=== PATIENT | female | born 1945 | race Caucasian/White ===

== ENCOUNTER 2024-10-07 08:53 | Emergency (ER) | payer MEDICARE, SELFPAY ==
[2024-10-07 09:43] VITALS: BP 144/67; PULSE 62; RESP 18; TEMP 36.9; O2SAT 98; BMI 27.3
--- NOTE | 2024-10-07 10:30 | XRR_ITS ---
PROCEDURE INFORMATION: Exam: XR Left Humerus Exam date and time: 10/07/2024 10:35 AM Age: 79 years old Clinical indication: Pain; Upper arm; Left TECHNIQUE: Imaging protocol: Radiologic exam of the left humerus. Views: 2 or more views. COMPARISON: No relevant prior studies available. FINDINGS: Bones/joints: There is a comminuted and displaced fracture involving the proximal humerus. Fracture primarily appears to involve the surgical neck. Bones are diffusely demineralized. Soft tissues: Normal. XR/[place] [id number] IMPRESSION: 1. Proximal left humerus fracture.
--- NOTE | 2024-10-07 13:03 | ED_ITS ---
HPI - General Adult General: Chief complaint: Extremity Injury, Upper Stated complaint: LT arm inj Time Seen by Provider: 10/07/24 08:56 Source: patient and family Mode of arrival: wheelchair Limitations: no limitations History of Present Illness: Patient is a 79-year-old female presents to ED today along with family for a request of refills on her pain medication. Patient states she broke her proxi mal humerus last Thursday and was seen at [facility]. She was given a prescription for oxycodone and ibuprofen. She states she has been taking 1 tablet of the 5mg/325mg every 6 hours and alternating it with 800 mg of ibuprofen and this seems to be controlling her pain. She was given 15 tabs last Thursday from [facility] and she is now out of this medication. She does have follow-up with Dr. Murphy scheduled for 10/14 (7 days from now) and needing enough pain medication to last her until this appointment. Pain Consistency: constant Relieving factors: other (pain medication) Exacerbating factors: movement Associated symptoms: Reports no associated symptoms; Deny chest pain or dyspnea Related Data Previous Rx's Medication Instructions Recorded oxycodone-acetaminophen 5 mg-325 1 tab PO Q6H PRN pain #28 tabs 10/07/24 mg tablet (Percocet) Allergies Allergy/AdvReac Type Severity Reaction Status Date / Time erythromycin base Allergy Unknown Verified 10/07/24 09:52 iodine Allergy Unknown Verified 10/07/24 09:52 Review of Systems Const: Denies: fever(s) Card: Denies: chest pain Resp: Denies: dyspnea Musc: Reports: joint pain (L shoulder) and limited range of motion (L shoulder); Denies: joint swelling, joint redness or joint warmth Neuro: Denies: numbness in extremities, weakness in extremities or sensory changes Physical Exam Const: COMMON NORMALS: no acute distress, average body habitus, patient oriented x3, no limitations, healthy appearing, alert and well nourished GENERAL APPEARANCE: cooperative ORIENTATION/CONSCIOUSNESS: Yes awake, Yes oriented to person, Yes oriented to place and Yes oriented to time Extremity: COMMON NORMALS: capillary refill normal GENERAL: Yes normal exam except as noted LEFT UPPER EXTREMITY: Yes shoulder joint (in sling due to known proximal humeral fx) Left shoulder joint: Yes ROM (not tested due to known fx) and Yes neurovascular exam (normal) Neuro: COMMON NORMALS: patient oriented x3, moves all extremities, no focal motor deficits and no sensory deficits noted SENSORIUM/ORIENTATION: Yes alert, Yes oriented to person, Yes oriented to place and Yes oriented to time Course Vital Signs: Vital signs: Vital Signs Temperature 98.4 F 10/07/24 09:43 Pulse Rate 62 10/07/24 09:43 Respiratory Rate 18 10/07/24 09:43 Blood Pressure 144/67 10/07/24 09:43 Pulse Oximetry 98 10/07/24 09:43 Oxygen Delivery Me thod Room Air 10/07/24 09:43 MDM - General Adult Medical Decision Making Confirm her appointment with Dr. Murphy on 10/14. Patient will be given pain medication to last her until this appointment. Dr. Biggs wrote for pain medication. Medical Records I reviewed the patient's medical records. Lab Data Radiology Impressions Humerus X-Ray 10/07/24 10:30 IMPRESSION: 1. Proximal left humerus fracture. All radiology interpretation(s) finalized by discharge Discharge Plan Discharge Patient Disposition: Home Clinical Impression: Fracture of proximal end of humerus Qualifiers: Encounter type: initial encounter Fracture type: closed Fracture morphology: other fracture Fracture alignment: displaced Laterality: left Qualified Code(s): S42.292A - Other displaced fracture of upper end of left humerus, initial encounter for closed fracture Condition: Stable Prescriptions: New oxycodone-acetaminophen [Percocet] 5-325 mg tablet 1 tab PO Q6H PRN (Reason: pain) Qty: 28 0RF Discharge Orders: Discharge ED (Routine); Ordered 10/07/24 Ordered By: Silvana Stevenson Patient Instructions: Proximal Humerus Fracture (ED), Opioid Safety, Pain Management Activity Restrictions/Additional Instructions: Please follow-up with Dr. Murphy on 10/14 as scheduled. Prescription for your pain medication has been sent to [facility] as requested. Coding Level of Care Code ED Emergency Medicine Medical Director for Oscar Cheney
[2024-10-07 13:27] VITALS: BP 138/71; PULSE 63; O2SAT 99
== END 2024-10-07 13:28 | disposition home or self-care (01) ==
PROVIDERS: Emergency Provider Physician Assistant
DX: S42.292A Other displaced fracture of upper end of left humerus, initial encounter for closed fracture (principal); X58.XXXA Exposure to other specified factors, initial encounter; Z76.0 Encounter for issue of repeat prescription
CPT/HCPCS: 73060; 99283

== ENCOUNTER → 2024-10-14 10:22 | Outpatient (BNVA) | payer MEDICARE, SELFPAY | PROVIDERS: Visit Provider Student in an Organized Health Care Education/Training Program | DX: S42.292A Other displaced fracture of upper end of left humerus, initial encounter for closed fracture (principal); W10.1XXA Fall (on)(from) sidewalk curb, initial encounter | CPT/HCPCS: 73030; 99204 ==

== ENCOUNTER 2024-10-17 10:02 | Day surgery (SDC) | payer MEDICARE, SELFPAY ==
[2024-10-17] VITALS (19 sets, daily range): BP systolic 124–166; BP diastolic 66–90; PULSE 68–90; RESP 16–97; TEMP 36.5–37.5; O2SAT 93–99; BMI 27.3
--- NOTE | 2024-10-17 | XR_ITS ---
WS: [id number] Left arm and humerus, 2 views, C-arm fluoroscopy, 10/17/2024 Clinical Data: EDE PICS Comparison: Left shoulder, 10/14/2024 Findings: Dr. Murphy inserted the proximal left humeral nail and fixed the proximal portion with transverse orth opedic screws. XR/[place] [id number] Impression: Internal fixation of proximal left humeral fracture.
--- NOTE | 2024-10-17 10:27 | W.PM.OPSUD ---
Surgery/Procedure H&P Update DATE OF PROCEDURE: October 17, 2024 DATE H&P PERFORMED: 10/14/24 H&P UPDATE INFORMATION: I have reviewed H&P completed within last 30 days, I have examined patient prior to procedure and No changes to prior documentation PREOP DIAGNOSIS: Left proximal humerus fracture PRIMARY INDICATION FOR PROCEDURE: Left proximal humerus fracture displaced PLANNED PROCEDURE: Operation Date: 10/17/24 11:50 Proposed Procedures p ORIF Proximal Humerus(Left) - Miles Murphy DO
[2024-10-17] MEDS: acetaminophen 1,000 MG/100 ML PIGGYBACK 400 MG IV (10:30)
--- NOTE | 2024-10-17 10:59 | ANES.PREANE2 ---
Pre-Anesthetic Assessment Height/Weight: Height 1.55 m Weight 65.771 kg Temp Pulse Resp BP Pulse Ox O2 Del Method 99.5 F 68 17 124/66 96 Room Air 10/17/24 10:22 10/17/24 10:22 10/17/24 10:22 10/17/24 10:22 10/17/24 10:22 10/17/24 10:23 Preop Diagnosis: Left proximal humerus fracture Operation Date: 10/17/24 11:50 Proposed Procedures p ORIF Proximal Humerus(Left) - Miles Meigs, Familial anesthetic complications: None Was Beta Kirstin taken within 24 hours: N/A Was Clonidine taken within 24 hours: N/A Last intake: Intake Last Liquid Date 10/16/24 Last Liquid Time 19:00 Last Solid Date 10/16/24 Last Solid Time 19:00 Social No alcohol and No tobacco Exam alert, oriented x 3, clear to auscultation bilaterally and regular rate & rhythm Airway Mallampati: Class I Dentition: chipped (several broken) CV/HEM Able to achieve > 4 METS, good functional status - 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 Anesthetic Plan ASA status: 1 Anesthesia: General Risk of > 500 ml blood loss (7ml/kg in children): No Medications/Allergies Home Medications Medication Instructions Recorded Confirmed Last Taken Type oxycodone-acetaminophen 5 mg-325 1 tab PO Q6H PRN pain 7 days #28 10/14/24 10/17/24 10/17/24 Rx mg tablet (Percocet) tabs Allergies Allergy/AdvReac Type Severity Reaction Status Date / Time erythromycin base Allergy Unknown Verified 10/14/24 10:28 iodine Allergy Unknown Verified 10/14/24 10:28 [facility] Anesthesia Social History Smoking and tobacco/nicotine status: never used tobacco/nicotine Data Anesthesia Cardiac Studies: No Data to Display
[2024-10-17] MEDS: sodium chloride 0.9% 1,000 ML 30 ML IV (11:11)
[2024-10-17] MEDS: ceFAZolin 2,000 MG in sodium chloride 0.9% (plus) 50 ML 100 MG IV (12:18)
--- NOTE | 2024-10-17 14:15 | P.OP_ITS ---
Operative Report Date of procedure: October 17, 2024 Pre-op diagnosis: Comminuted displaced left proximal humerus fracture Post-op diagnosis: Same Procedure done: Left proximal humerus open reduction internal fixation with proximal humeral nail Implants: Anil T2 proximal humeral nail 8 mm x 150 mm Locking screw fully threaded( 5 mm x 45 mm, , 5 mm x 45 mm, 5 mm x 37.5 mm) (4 mm x 26 mm, 4 mm x 28 mm wasted) Surgeon: Miles Murphy DO Anesthesia: General Estimated blood loss: 40mL none IV fluids: 1200mL Complications: none Findings: see op note Disposition: same day Brief History: Patient is a pleasant 79-year-old female whose had significant fracture of the left proximal humerus predominantly at the surgical neck with significant translation impaction and displacement. We talked about details with patient as well as daughter at this point in time we talked about nonoperative versus operative invention, given her interval displacement from the ER images we talked about treatment options and through shared decision making they elect proceed with left proximal humerus open reduction internal fixation with plan for proximal humeral nail. We talked about the ins and outs procedure risk benefits complication alternatives surgery through shared decision-making elects proceed with surgical intervention. All questions answered at this time. Procedure: Patient was seen eval in the preoperative holding area. Consent was reviewed and signed with patient. Correct extremity was then subsequently marked. She was seen evaluated by anesthesia was cleared for surgery she was taken back to the operative suite. Transported on the OR table In supine position all bony problems well-padded patient was awake. Appropriately secured to the bed. She subsequently underwent anesthesia per the anesthesia department once properly anesthetized we then position patient into a sloppy beachchair position and then subsequently secured to make sure appropriate head and neck positioning was confirmed as well as brought in the C arm from the opposite side to confirm satisfactory ability to obtain the images. At this point in time once I satisfied with this I then subsequently had the left upper extremity was then prepped and draped standard orthopedic fashion. Final timeout performed. Patient received appropriate preoperative robotics. This point time I brought in the fluoroscopic imaging to confirm viability to obtaining of reduction. At this point in time I was able to obtain traction with this engage as well as was able to manually hold the fracture in better alignment from a lateral plane affecting more the anterior to posterior translation. At this point time once I was satisfied with my ability to achieve a reduction I started with a small anterior lateral incision right off the anterolateral edge of the acromion and standard proximal humeral nail fashion. Sharp scalpel incision was made through skin subcutaneous tissue maintain exact hemostasis with electrocautery. I then subsequently utilized Metzenbaum scissors to split the anterior third of the deltoid through the raphae and then subsequently blunt dissection freed of any adhesions in the subacromial space and then came down directly over the rotator cuff which was intact. At this point in time the head was in slight varus positioning I utilized FiberWire to suture this within the rotator cuff to obtain control for my reduction and was going to have my library technical assistant hold this during the procedure to maintain my reducti on and positioning. At this point in time once I was satisfied with multiple adjustments with my manual traction rotation as well as holding of the rotator cuff suture to take this out of the varus positioning once I had satisfactory positioning with for scopic imaging I proceeded with a humeral nail. I then subsequently percutaneously made a small poke to the rotator cuff tendon and then subsequently came down over the starting position in the sulcus of the articular border laterally as well as just medial to the greater tuberosity in standard Anil proximal humeral nail protocol fashion. I then did a lateral positioning to confirmed to be in the center center position from an anterior to posterior positioning and then subsequently utilized a mallet to impact this down while holding this reduction I advanced that into the distal fracture fragment I then subsequently utilized the opening reamer and then removed the nail I utilized a long ball-tipped guidewire as well as the sleeve to satisfactorily placed a none ball-tipped wire to slide the humeral nail over this I held the reduction this entire time by my library technical assistant and then subsequently advanced the 8 mm x 150 mm [place] T2 proximal humeral nail. This was impacted to satisfactory position and confirmed to be satisfactory position and multiple orthogonal imaging. Once I was in satisfactory position I then subsequently proceeded with a proximal screw I subsequently utilized the targeting guide placed the triple sleeve and then subsequently drilled measured and placed appropriate 5 mm locking screw proximally. I then while this was held in reduction I then subsequently fixed by fracture distally subsequently drilled placed a placed a 28 mm screw this was determined to being slightly longer than what the reading w as and subsequently transitioned this to a 26 mm 4 mm locking screw. At this point in time I then prior to furthering my fixation I subsequently took multiple orthogonal images had satisfactory placement of the nail as well as fixation proximally distally and was satisfied at this point time and then subsequently proceeded with further locking fixation and subsequently drilled and placed an additional 3 locking screws in the proximal humeral head. Once these were all placed I then took final fluoroscopic imaging I then removed the targeting guide and subsequently took my final fluoroscopic imaging took the shoulder through range of motion this moved as an entire unit and had satisfactory reduction and maintaining of alignment and stable fixation with multiple ranges of motion as well as multiple orthogonal images. All the screws were taken through approach withdrawal technique and none were intra-articular. At this point in time I then thoroughly irrigated the wound bed. I then wilson bsequently removed by controlling rotator cuff sutures and then tied utilizing FiberWire to repair the small split from the nail that was made in the rotator cuff repaired this with FiberWire suture in standard time fashion. Once I satisfied this thorough irrigation performed once again maintained exact hemostasis with electrocautery and then subsequently proceeded closing this in layered fashion with 0 Vicryl for the deltoid fascia as well as 2-0 Vicryl and then ghanshyam for the skin. This was then dressed with a standard Silverlon dressing and a UltraSling was applied. Patient tolerated procedure well without issues or complication taken back to PACU in stable condition. Disposition: Patient taken back in stable condition recovering well will follow-up in the orthopedic office in 2 weeks to receive appropriate discharge Fransico as well as pain medication postoperatively. Patient and daughter understand agree with current plan. Questions answered.
--- NOTE | 2024-10-17 14:20 | P.BOP_ITS ---
Date of Procedure: [October 17, 2024] Surgeon: [Dr. Murphy, DO] Communications Department Chair(s): [N/A] Procedure(s) performed: [Left Proximal humeral open reduction internal fixation with humeral nail] Findings of the procedure(s): [Displaced left proximal humerus fracture. Procedure went well and as planned.] Estimated blood loss: [40 mL] Specimen(s) removed: [N/A] Post-operative diagnosis: [Displaced left proximal humerus fracture]
--- NOTE | 2024-10-17 14:24 | PM.PACU ---
PACU note Narrative: Patient is a 79-year-old female who just underwent a left proximal humerus ORIF. Patient transferred to PACU in stable condition. Pain is well controlled. shoulder Dressing on , dry and in place. Patient's operative arm is in a shoulder immobilizer. Patient is awake and alert and able to respond to my questions accordingly. Patient's fingers are warm with good perfusion. Normal cap refill under 2 seconds. Unable to assess further range of motion in arm due to sling. sensation to hand is intact. Exam: somnolent, arousable Disposition: discharged
[2024-10-17] MEDS: fentaNYL 50 mcg/mL INJ 2mL IVP ×2 (14:32→14:40)
[2024-10-17] MEDS: ondansetron 2 mg/ML SDV 2 mL 4 MG IVP (14:43)
[2024-10-17] MEDS: HYDROmorphone 1 mg/mL INJ 1 mL 0.5 MG IVP (14:57)
[2024-10-17] MEDS: HYDROcodone-acetaminophen 7.5-325 mg Tablet 1 TAB PO (16:02)
[2024-10-17] MEDS: ketorolac 30 mg/mL INJ 15 MG IVP (16:30)
--- NOTE | 2024-10-17 17:25 | ANE.PACU2 ---
Inpatient post-anesthesia follow up: Airway intact: Yes Vital signs: Temperature 97.7 F Pulse Rate 83 Respiratory Rate 18 Blood Pressure 146/81 Pulse Oximetry 94 Oxygen Delivery Me thod Room Air Oxygen Flow Rate 2 Fraction of Inspir ed Oxygen Hydration adequate: Yes Nausea and vomiting: No Pain level: 1 Mental status: Baseline
== END 2024-10-17 17:25 | disposition home or self-care (01) ==
PROVIDERS: Visit Provider Student in an Organized Health Care Education/Training Program
PROC: (CPT 24516; principal; 2024-10-17 11:50)
DX: S42.202A Unspecified fracture of upper end of left humerus, initial encounter for closed fracture (principal); W01.0XXA Fall on same level from slipping, tripping and stumbling without subsequent striking against object, initial encounter
CPT/HCPCS: 23615; 73060; 76000; C1713; J0131; J0690; J1100; J1171; J1885; J2405; J2704; J3010; J7030

== ENCOUNTER → 2024-11-01 11:03 | Outpatient (BNVA) | payer MEDICARE, SELFPAY | PROVIDERS: Visit Provider Student in an Organized Health Care Education/Training Program | DX: S42.292D Other displaced fracture of upper end of left humerus, subsequent encounter for fracture with routine healing; X58.XXXD Exposure to other specified factors, subsequent encounter; Z46.89 Encounter for fitting and adjustment of other specified devices; S42.402D Unspecified fracture of lower end of left humerus, subsequent encounter for fracture with routine healing | CPT/HCPCS: 73060 ==

== ENCOUNTER 2024-11-01 14:47 | Outpatient (CLI) | payer MEDICARE, SELFPAY | END 2024-11-01 14:48 | disposition home or self-care (01) | LOC: SPT 14:50 | PROVIDERS: Visit Provider Student in an Organized Health Care Education/Training Program | DX: Z46.89 Encounter for fitting and adjustment of other specified devices (principal); S42.402D Unspecified fracture of lower end of left humerus, subsequent encounter for fracture with routine healing; X58.XXXD Exposure to other specified factors, subsequent encounter | CPT/HCPCS: 99024; A4565 ==

== ENCOUNTER 2024-11-05 13:30 | Emergency (ER) | payer MEDICARE, SELFPAY ==
--- NOTE | 2024-11-05 13:36 | XRR_ITS ---
PROCEDURE INFORMATION: Exam: XR Left Humerus Exam date and time: 11/05/2024 2:43 PM Age: 79 years old Clinical indication: Pain; Upper arm; Prior surgery; Surgery date: 3-7 days post-operative; Surgery type: Left humerus; Additional info: Lt upper arm pain; Recent lt humeral orif TECHNIQUE: Imaging protocol: Radiologic exam of the left humerus. Views: 2 or more views. COMPARISON: [place] [id number] 10/07/2024 10:35 AM FINDINGS: Bones/joints: Intact ORIF hardware in the proximal left humerus traversing a fracture in this region. Soft tissues: Normal. XR/[place] [id number] IMPRESSION: No acute findings.
[2024-11-05 13:43] VITALS: BP 188/91; PULSE 63; RESP 17; TEMP 36.6; O2SAT 95; BMI 26.5
[2024-11-05 14:36] VITALS: BP 179/90; PULSE 71; RESP 18; O2SAT 97
--- NOTE | 2024-11-05 14:49 | XRR_ITS ---
PROCEDURE INFORMATION: Exam: XR Left Elbow Exam date and time: 11/05/2024 3:07 PM Age: 79 years old Clinical indication: Pain; Elbow; Prior surgery; Surgery date: 3-7 days post-operative; Surgery type: Left humeral orif TECHNIQUE: Imaging protocol: Radiologic exam of the left elbow. Views: 3 or more views. COMPARISON: CR (UP EXM, ) 11/05/2024 2:43 PM FINDINGS: Bones/joints: Normal. Soft tissues: Normal. XR/XR elbow LT min 3V* [id number] IMPRESSION: No acute findings.
--- NOTE | 2024-11-05 14:50 | ED_ITS ---
HPI - Extremity Problem General: Chief complaint: Extremity Injury, Upper Stated complaint: lft shoulder injury Time Seen by Provider: 11/05/24 14:27 History of Present Illness: 79-year-old female presents emergency ro om complaining of left shoulder pain. October 17 she had fallen and had Left proximal humerus fracture. She had open reduction internal fixation. She is complaining of increasing pain radiating down to her elbow now. She still has use of her left hand. Neuro vascularly intact. No new trauma since the surgery Associated symptoms: Deny chest pain, fever(s) or rash Related Data Home Medications Medication Instructions Recorded Confirmed acetaminophen 325 mg tablet 325 mg PO QID PRN Pain 11/01/24 11/05/24 (Tylenol) aspirin 81 mg tablet,delayed 81 mg PO BID 11/05/24 11/05/24 release ondansetron 4 mg disintegrating 4 mg PO Q8H PRN Nausea And Vomiting 11/05/24 11/05/24 tablet Previous Rx's Medication Instructions Recorded CUFF AND COLLAR BRACE #1 ea 11/01/24 oxycodone-acetaminophen 5 mg-325 1 tab PO Q6H PRN pain #20 tabs 11/05/24 mg tablet Allergies Allergy/AdvReac Type Severity Reaction Status Date / Time erythromycin base Allergy Unknown Verified 11/01/24 11:18 iodine Allergy Unknown Verified 11/01/24 11:18 Review of Systems Const: Denies: fever(s) or chills Card: Denies: chest pain Resp: Denies: dyspnea GI: Denies: abdominal pain : Denies: dysuria, urinary frequency or urinary urgency Musc: Denies: neck pain or back pain Skin/Breast: Denies: rash PFSH ED PFSH: Social History Smoking and tobacco/nicotine status: never used tobacco/nicotine Physical Exam Const: COMMON NORMALS: no acute distress GENERAL APPEARANCE: cooperative and comfortable ORIENTATION/CONSCIOUSNESS: Yes awake, Yes oriented to person, Yes oriented to place and Yes oriented to time HENMT: COMMON NORMALS: normocephalic, atraumatic and hearing grossly normal bilaterally HEAD & SCALP: normocephalic and atraumatic Resp: COMMON NORMALS: normal respiratory effort, No retractions, No use of accessory muscles and clear to auscultation bilaterally AUSCULTATION: clear to auscultation bilaterally Cardio: COMMON NORMALS: regular rate, regular rhythm and No murmurs present (Cardio) RATE: regular rate RHYTHM: regular rhythm Extremity: OTHER: Examination incision wound is well-healed no dehiscence no redness no erythema no sign of trauma there is no evidence of dislocation. Neuro: SENSORIUM/ORIENTATION: Yes oriented to person, Yes oriented to place and Yes oriented to time Skin: COMMON NORMALS: no rashes or lesions noted GENERAL SKIN EXAM: no rashes or lesions noted Course Vital Signs: Vital signs: Vital Signs Temperature 97.8 F 11/05/24 13:43 Pulse Rate 66 11/05/24 16:19 Respiratory Rate 18 11/05/24 14:36 Blood Pressure 178/76 11/05/24 16:19 Pulse Oximetry 96 11/05/24 16:19 Oxygen Delivery Me thod Room Air 11/05/24 14:36 MDM - Extremity (Nontraumatic) Medical Decision Making Midshaft of the humerus at the termination area of the intramedullary reed there is a cortical defect appears to be a fracture. This corresponds to the area of pain that the patient is having reviewed with Dr. Murphy he concurred. Discharge patient home and f/u [address] Murphy. Medical Records I reviewed the patient's medical records. Lab Data Radiology Impressions Humerus X-Ray 11/05/24 13:36 IMPRESSION: No acute findings. Elbow X-Ray 11/05/24 14:49 IMPRESSION: No acute findings. All radiology interpretation(s) finalized by discharge Discharge Plan Discharge Patient Disposition: Home Clinical Impression: Fracture of proximal end of left humerus Fracture, humerus, shaft Qualifiers: Encounter type: initial encounter Fracture type: closed Fracture morphology: segmental Fracture alignment: nondisplaced Laterality: left Qualified Code(s): S42.365A - Nondisplaced segmental fracture of shaft of humerus, left arm, initial encounter for closed fracture Condition: Stable Prescriptions: New oxycodone-acetaminophen 5-325 mg tablet 1 tab PO Q6H PRN (Reason: pain) Qty: 20 0RF No Action acetaminophen [Tylenol] 325 mg tablet 325 mg PO QID PRN (Reason: Pain) (DME) CUFF AND COLLAR BRACE See Rx Instructions .Route .MEDSUPPLY Qty: 1 0RF Rx Instructions: As directed aspirin 81 mg tablet,delayed release (DR/EC) 81 mg PO BID ondansetron 4 mg tablet,disintegrating 4 mg PO Q8H PRN (Reason: Nausea And Vomiting) Discharge Orders: Discharge ED (Routine); Ordered 11/05/24 Ordered By: Bryant Wells Discharge Diet: Usual diet Patient Instructions: Opioid Safety, Pain Management Activity Restrictions/Additional Instructions: Thank you for choosing [facility] for your healthcare needs today. It is very important that you follow up as instructed or that you return to the Emergency Department should you have concerns or if your condition changes or worsens in any way. You were seen in the emergency room with pain in your left arm. The hardware that was placed with a proximal humerus fracture is in good position. There is an incomplete fracture midshaft of the humerus near the end of the medullary reed in the upper arm. Discussed her case with Dr. Murphy. This fracture likely occurred because of osteoporosis. Was not present at the time of surgery. Likely developed afterwards. There is no need for further surgery for this finding. You were given pain medications continue to use the sling as prescribed. Contact Dr. Murphy's office for a follow-up next week. Coding Level of Care Code ED Molded Goods Operator for Oscar Cheney
[2024-11-05 16:19] VITALS: BP 178/76; PULSE 66; O2SAT 96
--- NOTE | 2024-11-07 09:11 | DCPLANNER ---
Message sent to Ortho for a 1 week follow up per emli.
== END 2024-11-05 16:21 | disposition home or self-care (01) ==
PROVIDERS: Emergency Provider Family Medicine
DX: S42.36 Segmental fracture of shaft of humerus (principal); Z79.82 Long term (current) use of aspirin; W19.XXXA Unspecified fall, initial encounter
CPT/HCPCS: 73060; 73080; 99283

== ENCOUNTER → 2024-11-29 08:55 | Outpatient (BNVA) | payer MEDICARE, SELFPAY | PROVIDERS: Visit Provider Student in an Organized Health Care Education/Training Program | DX: S42.202D Unspecified fracture of upper end of left humerus, subsequent encounter for fracture with routine healing (principal); X58.XXXD Exposure to other specified factors, subsequent encounter | CPT/HCPCS: 73030; 73060; 99024; 99213 ==

== ENCOUNTER → 2025-01-24 10:37 | Outpatient (BNVA) | payer MEDICARE, SELFPAY | PROVIDERS: Visit Provider Student in an Organized Health Care Education/Training Program | DX: S42.202D Unspecified fracture of upper end of left humerus, subsequent encounter for fracture with routine healing (principal); X58.XXXD Exposure to other specified factors, subsequent encounter | CPT/HCPCS: 73060; 99213 ==

== ENCOUNTER → 2025-07-26 13:06 | Outpatient (BNVA) | payer MEDICARE, SELFPAY | PROVIDERS: Visit Provider Student in an Organized Health Care Education/Training Program | DX: S42.202A Unspecified fracture of upper end of left humerus, initial encounter for closed fracture (principal); X58.XXXA Exposure to other specified factors, initial encounter | CPT/HCPCS: 73030; 99213 ==